=== PATIENT | female | born 1980 | race Caucasian/White ===

== ENCOUNTER 2017-04-16 09:39 | Emergency (ER) | payer BC ==
[2017-04-16 09:50] VITALS: BP 116/78; PULSE 75; RESP 18; TEMP 98.1
--- NOTE | 2017-04-16 10:16 | ED ---
Eye Problem HPI - General Chief complaint: Eye Problems Stated complaint: RT EYE SWELLING Time Seen by Provider: 04/16/17 10:02 Source: patient, RN notes reviewed, old records reviewed Mode of arrival: ambulatory Limitations: no limitations - History of Present Illness Initial comments: 37-year-old female present the emergency Department chief complaint of right eye swelling and pain over the past day and a half. Patient reports that she tried a new eye cream and thinks that she may have caused an infection to that. She reports that her eye feels okay just the surrounding inferior tissue that is painful to her. She denies any fever or chills. Denies any pain with extraocular eye movements. Patient denies any recent fever, chills, shortness of breath, chest pain, back pain, abdominal pain, nausea vomiting, numbness or tingling, dysuria or hematuria, constipation or diarrhea, headaches or visual changes, or any other current symptoms - Related Data Home Medications Medication Instructions Recorded Confirmed Phentermine HCl [Adipex-P] 37.5 mg PO QAM 10/05/14 10/05/14 Previous Rx's Medication Instructions Recorded Cephalexin [Keflex] 500 mg PO Q8HR #21 cap 04/16/17 Erythromycin Ophth Oint [Romycin 1 applic RIGHT EYE QID #1 tube 04/16/17 Ophth Oint] Allergies Allergy/AdvReac Type Severity Reaction Status Date / Time No Known Allergies Allergy Verified 04/16/17 09:50 Review of Systems ROS Statement: Those systems with pertinent positive or pertinent negative responses have been documented in the HPI. ROS Other: All systems not noted in ROS Statement are negative. Past Medical History Past Medical History: No Reported History History of Any Multi-Drug Resistant Organisms: None Reported Past Surgical History: Tonsillectomy Additional Past Surgical History / Comment(s): left great toe Past Psychological History: No Psychological Hx Reported Smoking Status: Current every day smoker Past Alcohol Use History: None Reported Past Drug Use History: None Reported General Exam - General Exam Comments Initial Comments: Physical is a 37-year-old female. No acute distress. Limitations: no limitations General appearance: alert, in no apparent distress Head exam: Present: atraumatic, normocephalic, normal inspection Eye exam: Present: normal appearance, PERRL, EOMI, periorbital swelling, periorbital tenderness (Patient has some right-sided lower. Orbital swelling and mild tenderness. Evidence of a hordeolum over the medial aspect of the eye. ). Absent: scleral icterus, conjunctival injection ENT exam: Present: normal exam, mucous membranes moist Neck exam: Present: normal inspection. Absent: tenderness, meningismus, lymphadenopathy Respiratory exam: Present: normal lung sounds bilaterally. Absent: respiratory distress, wheezes, rales, rhonchi, stridor Cardiovascular Exam: Present: regular rate, normal rhythm, normal heart sounds. Absent: systolic murmur, diastolic murmur, rubs, gallop, clicks GI/Abdominal exam: Present: soft, normal bowel sounds. Absent: distended, tenderness, guarding, rebound, rigid Extremities exam: Present: normal inspection, full ROM, normal capillary refill. Absent: tenderness, pedal edema, joint swelling, calf tenderness Back exam: Present: normal inspection Neurological exam: Present: alert, oriented X3, CN II-XII intact Psychiatric exam: Present: normal affect, normal mood Skin exam: Present: warm, dry, intact, normal color. Absent: rash Course Vital Signs 04/16/17 09:48 Temperature 98.1 F Pulse Rate 75 Respiratory 18 Rate Blood Pressure 116/78 O2 Sat by Pulse 100 Oximetry Medical Decision Making - Medical Decision Making 37-year-old female present the emergency Department chief complaint of right eye swelling and pain over the past day and a half. Patient reports that she tried a new eye cream and thinks that she may have caused an infection to that. She reports that her eye feels okay just the surrounding inferior tissue that is painful to her. is evidence of a right lower hordeolum. There is surrounding swelling and erythema. Patient be started on erythromycin eye ointment, and Keflex. Discussed close follow-up with primary care physician or slag skimmer. Discussed discontinuing her makeup including mascara and eyeliner until this is totally cleared. Patient agrees to treatment plan will comply. Also discussed warm compresses over the area. Disposition Clinical Impression: Hordeolum externum (stye) Disposition: HOME SELF-CARE Condition: Good Instructions: Stye (ED) Additional Instructions: Patient is to do warm compresses over the area, take the medications as prescribed. Follow-up with your primary care physician if symptoms continue to persist or worsen. Return to emergency department if any alarming signs or symptoms occur. Prescriptions: Cephalexin [Keflex] 500 mg PO Q8HR #21 cap Erythromycin Ophth Oint [Romycin Ophth Oint] 1 applic RIGHT EYE QID #1 tube Referrals: Derick Alejandra DO [Primary Care Provider] - 1-2 days Time of Disposition: 10:15
== END 2017-04-16 10:26 | disposition home or self-care (01) ==
LOC: EC 09:39
DX: H00.012 Hordeolum externum right lower eyelid (principal); F17.200 Nicotine dependence, unspecified, uncomplicated; Z79.899 Other long term (current) drug therapy
CPT/HCPCS: 99283

== ENCOUNTER 2017-08-26 11:06 | Day surgery (SDC) | payer BC ==
[2017-08-24 14:50] VITALS: BMI 32.3
--- NOTE | 2017-08-25 16:43 | HP ---
HISTORY AND PHYSICAL REASON FOR ADMISSION: Surgery scheduled for 08/26/2017. HISTORY OF PRESENT ILLNESS: Amparo Wayne is 37-year-old patient seen with a displaced right ankle bimalleolar fracture. Recommend open reduction, internal fixation. Reviewed the procedure, risks, complications, benefits, recovery, the patient was agreeable and consent was obtained. PAST MEDICAL HISTORY: Noncontributory. PAST SURGICAL HISTORY: Left foot surgery. MEDICATIONS: Analgesics as needed. ALLERGIES: None reported. SOCIAL HISTORY: Patient smokes half pack cigarettes daily. PHYSICAL EXAMINATION: Evaluation of the right ankle: Tenderness along the lateral medial malleolus. Mild swelling laterally. Homans Kory negative. She is able to move her toes without pain. Distal neurovascular exam is intact. RADIOGRAPHS: Radiographs of the right ankle revealed displaced lateral malleolar fracture and a medial malleolar avulsion fracture. IMPRESSION: Right ankle bimalleolar fracture. PLAN: Open reduction, internal fixation, right ankle. Surgery is scheduled for 08/26/2017. MMODL / IJN: [id number] /
[~2017-08-26 11:06] MED LIST: DEXAMETHASONE SOD PHOSPHATE 10 MG/ML 1 ML VIAL IV ONE; ONDANSETRON 4 MG/2 ML VIAL IVP ONE; ceFAZolin IN SWFI 2 GM/20 ML SYRINGE IVP ONE
[2017-08-26] MEDS ORDERED: LIDOCAINE 1% 20 ML VIAL (10MG/ML) FOR IV START INTRADERMA ONE (11:36)
[2017-08-26] MEDS: LACTATED RINGERS 1,000 ML IV SCH (11:36)
[2017-08-26] MEDS ORDERED: HYDROcodone/APAP 5-325MG 1 EACH TAB PO PRN (12:02)
[2017-08-26] MEDS ORDERED: ONDANSETRON 4 MG/2 ML VIAL IVP PRN (12:02)
[2017-08-26] MEDS ORDERED: HYDROmorphone 1 MG/ML 1 ML SYRINGE IVP PRN ×2 (12:02)
[2017-08-26] MEDS ORDERED: LIDOCAINE 1% INJ 10MG/ML (20 ML MDV) ONE (12:03)
[2017-08-26] MEDS ORDERED: fentaNYL (PF) 50 MCG/ML 2 ML AMP ONE (12:03)
[2017-08-26] MEDS ORDERED: PROPOFOL 10 MG/ML 20 ML VIAL IV ONE (12:03)
[2017-08-26] MEDS ORDERED: HYDROmorphone (PF) 1 MG/ML ONE (12:03)
[2017-08-26] MEDS ORDERED: MIDAZOLAM 2 MG/2 ML VIAL ONE (12:03)
[2017-08-26] MEDS ORDERED: ACETAMINOPHEN TAB 325 MG TAB PO PRN (12:06)
[2017-08-26] MEDS ORDERED: ceFAZolin 1,000 MG in SODIUM CHLORIDE 0.9% 1,000 ML IRRIGATION ONE (12:29)
--- NOTE | 2017-08-26 13:06 | XR ---
Fluoroscopy INDICATION: Pain, open reduction internal fixation FINDINGS: Fluoroscopy time: 11 seconds. Images obtained: 3. IMPRESSIONS: 1. Documentation of fluoroscopy.
--- NOTE | 2017-08-26 13:06 | FL ---
Fluoroscopy INDICATION: Pain FINDINGS: Fluoroscopy time: 11 seconds. Images obtained: 3. IMPRESSIONS: 1. Documentation of fluoroscopy.
[2017-08-26] MEDS: HYDROmorphone 0.5 MG/0.5 ML SYRINGE IVP PRN ×2 (13:15→13:20)
[2017-08-26] MEDS: MIDAZOLAM 2 MG/2 ML VIAL IV PRN ×2 (13:15→13:30)
--- NOTE | 2017-08-26 13:18 | P.OP ---
Date of Procedure: 08/26/17 Preoperative Diagnosis: Displaced right ankle lateral malleolar fracture Postoperative Diagnosis: Same Procedure(s) Performed: Open reduction and internal fixation right ankle lateral malleolar fracture Implants: [place] 5 hole semitubular plate with 5 appropriate length screws Anesthesia: SARA local Surgeon: Blu Estrada Carbonizer Tester #1: Artie Madrigal Estimated Blood Loss (ml): 15 Pathology: none sent Condition: stable Disposition: PACU Indications for Procedure: 37-year-old patient seen with a bimalleolar right ankle fracture. The medial side had a small avulsion fracture and lateral malleolar fracture was displaced. I recommended open reduction internal fixation of the right ankle lateral malleolus. After reviewing the procedure, risks, complications and recovery the patient was agreeable and consent was obtained. Operative Findings: See description of procedure Description of Procedure: The patient was taken to the operative suite. The patient underwent a general anesthetic by the department of anesthesia. The patient had received preoperative IV antibiotics. A well-padded tourniquet was placed proximal right lower extremity. The right lower extremity was prepped and draped in the normal sterile orthopedic fashion. The extremity was elevated and tourniquet insufflated to 350. I now made an incision along the lateral malleolus approximately 4 inches in length sharply through skin. I dissected down to the lateral malleolus. I identified the lateral malleolar fracture which was displaced. Periosteal elevation was utilized to define the fracture site. I reduced the fracture with a [id number] bone reduction clamp. I chose a 5 hole semitubular plate. This was appropriately contoured. Secured to the bone. Appropriate drill holes were made and appropriate length screws were inserted 5. All 5 screws had good bite and purchase. The clamp was removed. The C-arm was brought in reviewing the entire construct under AP and lateral intraoperative imaging. The fracture was reduced and the hardware was in satisfactory position. Spot films were obtained to document that. The wound was irrigated with normal saline. The subcu soft tissues were approximated with 2-0 Vicryl. The skin was approximated with skin stefani. The subcu soft tissues were infiltrated with half percent plain Marcaine totaling 20 mL. We applied sterile dressings followed by loose web roll. The tourniquet was released with immediate capillary refill of all digits noted. The patient was placed into a modified bulky Perry splint with ankle in neutral position. The patient was awakened, transferred to a bed and recovery stable condition. Ben PERKINS assisted with the procedure.
[2017-08-26] MEDS ORDERED: KETOROLAC 30 MG/ML 1 ML VIAL IVP ONE (13:20)
[2017-08-26] MEDS: MEPERIDINE 50 MG/ML SYRINGE IVP ONE ×2 (13:30→13:39)
[2017-08-26] MEDS ORDERED: diphenhydrAMINE 50 MG/ML 1 ML VIAL IVP ONE (13:39)
[2017-08-26] MEDS: traMADol 50 MG TAB PO SCH ×2 (17:16→21:39)
[2017-08-26] MEDS: ceFAZolin IN SWFI 2 GM/20 ML SYRINGE IVP SCH (21:32)
[2017-08-27] MEDS: HYDROcodone/APAP 5-325MG 1 EACH TAB PO PRN ×2 (03:02→09:53)
[2017-08-27] MEDS: ceFAZolin IN SWFI 2 GM/20 ML SYRINGE IVP SCH (04:21)
[2017-08-27] MEDS: LACTATED RINGERS 1,000 ML IV SCH (08:16)
[2017-08-27] MEDS: traMADol 50 MG TAB PO SCH (08:18)
[2017-08-27 08:19] VITALS: BP 109/65; PULSE 73; RESP 22; TEMP 98.8
[2017-08-27] MEDS ORDERED: ENOXAPARIN 40 MG/0.4 ML SYRINGE SQ SCH (09:00)
--- NOTE | 2017-08-27 10:03 | P.PN ---
Subjective Progress Note Date: 08/27/17 Principal diagnosis: Status post ORIF right lateral malleolus fracture Patient seen today resting in her hospital bed, she appears comfortable. Her pain is well-controlled at this time. She denies any chest pain, shortness of breath, fever or chills, abdominal pain. Objective - Vital Signs Vital signs: Vital Signs Temp 98.8 F 08/27/17 08:17 Pulse 73 08/27/17 08:17 Resp 22 08/27/17 08:17 BP 109/65 08/27/17 08:17 Pulse Ox 96 08/27/17 08:17 Intake & Output 08/26/17 08/27/17 08/27/17 18:59 06:59 18:59 Intake Total 501 Output Total 15 Balance 486 Weight 99.337 kg Intake: IV 501 Output: Estimated Blood Loss 15 Other: Voiding Method Toilet # Voids 1 1 - Exam Right lower extremity: Postop splint is in good position. Minimal swelling of the toes noted. She is able to wiggle all the toes. Her sensory exam to light touch both proximal distal to the splint intact. Skin is warm to touch, cap refills less than 2 seconds. Assessment and Plan Plan: Assessment: 1. Postop day #1 status post open reduction internal fixation right lateral malleolus fracture Plan: Pain control, we'll discharge home on oral medication GI and DVT prophylaxis, continue aspirin 325 mg once daily at home Nonweightbearing, utilize crutches or walker Ice and elevate often Resume home medications after discharge Patient is stable for discharge to home, follow[facility]up at [facility] for evaluation in 2 weeks Time with Patient: Less than 30
--- NOTE | 2017-08-27 10:10 | P.DS ---
Providers Date of admission: 08/26/2017 Expected date of discharge: 08/27/17 Attending physician: Blu Estrada Primary care physician: Derick Beverly Hospital Course: Date of admission: 08/26/2017 Date of discharge: 08/27/2017 Admission diagnosis: Status post ORIF right ankle lateral malleolus fracture Discharge diagnosis: Same Attending physician: Dr. Estrada Surgical procedures: ORIF right ankle lateral malleolus fracture Brief history: Patient is a 37-year-old female who is seen and evaluated in the outpatient setting by Dr. Estrada with regards to a right ankle fracture. It was determined she would need for surgical fixation of the lateral malleolus, she was scheduled for this surgery for 08/18/2017. Hospital course: Details of patient's surgery can be found in operative report. Patient tolerated the procedure well and was subsequently transported to orthopedic floor. Patient's orthopeidc and medical care was provided daily. Patient had daily laboratory tests performed for evaluation of overall blood counts. Patient was treated with Lovenox for their postoperative DVT prophylaxis during their inpatient stay. Patient was noted to have a relatively uneventful postoperative course. Patient reported satisfactory pain control with oral pain medications by postoperative day 0. Patient moved steadily through the program and had no difficulty meeting the goals by postoperative day 1. Given patient's otherwise satisfactory course and having met physical therapy goals, plan is to discharge patient home on postoperative day 1. Discharge condition/disposition: Patient will be discharged home in stable condition. Discharge medications: Instructions are given on resumption of patient's normal daily medications per primary care recommendation, in addition patient will be prescribed [place] 5 mg/325 mg, Motrin 800 mg, aspirin 325 mg. Discharge instructions: 1. Pain medication as needed 2. Nonweightbearing, utilize crutches or walker 3. Aspirin 325 mg once daily for DVT prophylaxis 4. Ice and elevate often 5. Do not remove splint, keep covered when showering 6. Follow up in office at 2 weeks postop with Ben Madrigal PA-C 7. Follow up with your primary care doctor 7-10 days after discharge. 8. Contact [facility] with any questions, . Procedures: Open reduction internal fixation right lateral malleolus fracture Patient Condition at Discharge: Good Plan - Discharge Summary Discharge Rx Participant: Yes New Discharge Prescriptions: New Aspirin 325 mg PO DAILY #30 tab Hydrocodone/Acetaminophen [[place] 5-325] 1 each PO Q6HR PRN #40 tab PRN Reason: Pain Ibuprofen 800 mg PO Q8HR PRN #30 tablet PRN Reason: Pain Discharge Medication List Aspirin 325 mg PO DAILY #30 tab 08/27/17 [Rx] Hydrocodone/Acetaminophen [[place] 5-325] 1 each PO Q6HR PRN #40 tab 08/27/17 [Rx] Ibuprofen 800 mg PO Q8HR PRN #30 tablet 08/27/17 [Rx] Follow up Appointment(s)/Referral(s): Artie Madrigal PAC [PHYSICIAN COURTROOM CLERK] - 2 Weeks Activity/Diet/Wound Care/Special Instructions: Discharge instructions: Pain medication as needed Ice and elevate often Nonweightbearing, utilize crutches or walker Aspirin 325 mg once daily for DVT prophylaxis Follow-up at [facility] in 2 weeks Discharge Disposition: HOME SELF-CARE
== END 2017-08-27 11:20 | disposition home or self-care (01) ==
LOC: OR 11:06 → 3SUR 13:06 → OR 08-27 11:20
PROVIDERS: ATTEND Orthopaedic Surgery
DX: S82.61XA Displaced fracture of lateral malleolus of right fibula, initial encounter for closed fracture (principal); X58.XXXA Exposure to other specified factors, initial encounter; F17.210 Nicotine dependence, cigarettes, uncomplicated
CPT/HCPCS: 81025; 73610; 27792; C1713; J2250; J1200; J1100; J2175; J0690 ×3; J2405; J2001; J1650; J3010; J1885; J1170 ×2; J2704

== ENCOUNTER 2017-09-05 11:08 | Emergency (ER) | payer BC ==
[2017-09-05 11:13] VITALS: TEMP 97
--- NOTE | 2017-09-05 11:40 | ED ---
General Adult HPI - General Chief complaint: Extremity Problem,Nontraumatic Stated complaint: RT LEG PROBLEM, POST OP Time Seen by Provider: 09/05/17 11:20 Source: patient, RN notes reviewed, old records reviewed Mode of arrival: wheelchair Limitations: no limitations - History of Present Illness Initial comments: this patient is a 37-year-old female presents emergency Department stay chief complaint of sharp pains radiating down her right leg. She reports that she had a right ankle fracture repair by Dr. Estrada on 08/17/2018. Patient states she's been placed in a full cast since then. She reports that she occasionally feels sharp stabbing pain on the lateral aspect of the foot or her stefani were placed for the past week. Patient states that she reports it her foot has been swollen. She relates that she has been walking on her foot and not keeping it up as she is supposed to. Patient is concerned for bleeding or irritation at incision site. She states that she's had no fever or chills. Denies any redness up through the leg. She denies any numbness or tingling to the toes. - Related Data Home Medications Medication Instructions Recorded Confirmed Aspirin EC [Ecotrin Low Dose] 81 mg PO DAILY 09/05/17 09/05/17 Hydrocodone/Acetaminophen [[place] 1 tab PO Q6HR PRN 09/05/17 09/05/17 5-325] Previous Rx's Medication Instructions Recorded Ibuprofen 800 mg PO Q8HR PRN #30 tablet 08/27/17 Allergies Allergy/AdvReac Type Severity Reaction Status Date / Time No Known Allergies Allergy Verified 09/05/17 11:21 Review of Systems ROS Statement: Those systems with pertinent positive or pertinent negative responses have been documented in the HPI. ROS Other: All systems not noted in ROS Statement are negative. Past Medical History Past Medical History: No Reported History Additional Past Medical History / Comment(s): FX RT ANKLE History of Any Multi-Drug Resistant Organisms: None Reported Past Surgical History: Orthopedic Surgery, Tonsillectomy Additional Past Surgical History / Comment(s): left great toe surgery, right leg surgery Past Anesthesia/Blood Transfusion Reactions: No Reported Reaction Past Psychological History: No Psychological Hx Reported Smoking Status: Current every day smoker Past Alcohol Use History: Occasional Past Drug Use History: None Reported - Past Family History Mother Family Medical History: No Reported History General Exam - General Exam Comments Initial Comments: This patient is a well appearing 37 year old female, no distress. Limitations: no limitations General appearance: alert, in no apparent distress Head exam: Present: atraumatic, normocephalic, normal inspection Eye exam: Present: normal appearance, PERRL, EOMI. Absent: scleral icterus, conjunctival injection, periorbital swelling Respiratory exam: Present: normal lung sounds bilaterally. Absent: respiratory distress, wheezes, rales, rhonchi, stridor Cardiovascular Exam: Present: regular rate, normal rhythm, normal heart sounds. Absent: systolic murmur, diastolic murmur, rubs, gallop, clicks GI/Abdominal exam: Present: soft, normal bowel sounds. Absent: distended, tenderness, guarding, rebound, rigid Extremities exam: Present: full ROM, normal capillary refill. Absent: normal inspection, tenderness, pedal edema, joint swelling, calf tenderness Right Knee exam: Present: normal inspection, full ROM Lower Leg exam: Present: normal inspection, full ROM Ankle exam: Present: tenderness (over incision site). Absent: normal inspection (Patient has incision over lateral ankle. I removed the cast and inspected incision site. No drainage, erythema, or bleeding. Well appearing incision site. Normal sensation and pulse. ), full ROM (limited ROM due to recent surgery. ) Foot/Toe exam: Present: normal inspection, full ROM Neurovascular tendon exam: Present: no vascular compromise Back exam: Present: normal inspection Neurological exam: Present: alert, oriented X3, CN II-XII intact Psychiatric exam: Present: normal affect, normal mood Skin exam: Present: warm, dry, intact, normal color. Absent: rash Course Vital Signs 09/05/17 09/05/17 11:10 13:02 Temperature 97.0 F L Pulse Rate 99 79 Respiratory 18 16 Rate Blood Pressure 116/63 131/77 O2 Sat by Pulse 100 98 Oximetry Medical Decision Making - Medical Decision Making This is a 37 year old female with CC of irritation under cast for one week after patient had bimalleoular fracture repair by Dr. Estrada. She reports irriation at her incision site under cast. I removed cast with trauma ivette and plaster saw. Patient incision was inspected, no erythema, drainage, or swelling. No ulcerations or skin sores. She has no posterior calf tenderness. No concern for DVT at this time. PAtient case discussed with Dr. Sepulveda, he also examined the patient. Discussed importance of elevating leg, and taking antiinflammatory. Discussed that patient will follow up with Sean on scheduled appt on the . Patient cast was then reclosed with webroll and MAXIMO wrap. Discussed return parameters. Disposition Clinical Impression: Post-operative pain, Bimalleolar fracture of right ankle Disposition: HOME SELF-CARE Condition: Good Instructions: Ankle Fracture (ED) Additional Instructions: Patient advised to follow-up with primary care provider and wildfire prevention specialist on your scheduled appointment. Patient is to rest, ice, and elevate extremity. Remain in the splint as you have been. Return to emergency department if any alarming signs or symptoms occur. Referrals: Derick Alejandra DO [Primary Care Provider] - 1-2 days Time of Disposition: 12:40
[2017-09-05 13:03] VITALS: BP 131/77; PULSE 79; RESP 16
== END 2017-09-05 13:03 | disposition home or self-care (01) ==
LOC: EC 11:08
DX: S82.841A Displaced bimalleolar fracture of right lower leg, initial encounter for closed fracture (principal); G89.18 Other acute postprocedural pain; F17.200 Nicotine dependence, unspecified, uncomplicated; Z79.82 Long term (current) use of aspirin; X58.XXXA Exposure to other specified factors, initial encounter
CPT/HCPCS: 99283

== ENCOUNTER 2021-02-14 21:59 | Emergency (ER) | payer BC ==
[2021-02-14 22:17] VITALS: TEMP 99
--- NOTE | 2021-02-14 22:35 | ED ---
Abdominal Pain HPI - General Chief Complaint: Abdominal Pain Stated Complaint: Left abd pain Time Seen by Provider: 02/14/21 22:23 Source: patient Mode of arrival: ambulatory Limitations: no limitations - History of Present Illness Initial Comments: This patient is a 40-year-old woman who presents to be evaluated for left lower quadrant abdominal pain. She states that it is generally when she moves in bed or when she coughs. She notices sharp pain in the left lower quadrant/left groin. 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 She has not noticed any bulge or hernia. In review of systems she also has had some occasional nausea, no vomiting, no change in bowel movements. MD Complaint: abdominal pain -: week(s) Location: LLQ Radiation: none Migration to: no migration Severity: mild Quality: dull Consistency: intermittent Improves With: nothing Worsens With: movement, other (Coughing) Associated Symptoms: denies other symptoms - Related Data Home Medications Medication Instructions Recorded Confirmed Aspirin EC [Ecotrin Low Dose] 81 mg PO DAILY 09/05/17 09/05/17 Hydrocodone/Acetaminophen [[place] 1 tab PO Q6HR PRN 09/05/17 09/05/17 5-325] Previous Rx's Medication Instructions Recorded Ibuprofen 800 mg PO Q8HR PRN #30 tablet 08/27/17 Allergies Allergy/AdvReac Type Severity Reaction Status Date / Time No Known Allergies Allergy Verified 02/14/21 22:17 Review of Systems ROS Statement: Those systems with pertinent positive or pertinent negative responses have been documented in the HPI. ROS Other: All systems not noted in ROS Statement are negative. Constitutional: Denies: fever, chills Respiratory: Denies: cough, dyspnea Cardiovascular: Denies: chest pain, palpitations, edema Gastrointestinal: Reports: as per HPI, abdominal pain, nausea. Denies: vomiting, diarrhea, constipation, melena, hematochezia Genitourinary: Denies: dysuria, frequency, hematuria, abnormal menses Musculoskeletal: Denies: back pain Skin: Denies: rash Neurological: Denies: headache, weakness Past Medical History Past Medical History: No Reported History Additional Past Medical History / Comment(s): FX RT ANKLE History of Any Multi-Drug Resistant Organisms: None Reported Past Surgical History: Orthopedic Surgery, Tonsillectomy Additional Past Surgical History / Comment(s): left great toe surgery, right leg surgery Past Anesthesia/Blood Transfusion Reactions: No Reported Reaction Past Psychological History: No Psychological Hx Reported Smoking Status: Current every day smoker Past Alcohol Use History: Occasional Past Drug Use History: None Reported - Past Family History Mother Family Medical History: No Reported History General Exam Limitations: no limitations General appearance: alert, in no apparent distress Head exam: Present: atraumatic, normocephalic Eye exam: Present: normal appearance Respiratory exam: Present: normal lung sounds bilaterally. Absent: respiratory distress, wheezes, rales, rhonchi, stridor Cardiovascular Exam: Present: regular rate, normal rhythm, normal heart sounds. Absent: systolic murmur, diastolic murmur, rubs, gallop GI/Abdominal exam: Present: soft, normal bowel sounds. Absent: distended, tenderness, guarding, rebound, rigid, mass, pulsatile mass, hernia Extremities exam: Present: normal inspection, normal capillary refill. Absent: pedal edema, calf tenderness Back exam: Present: normal inspection. Absent: CVA tenderness (R), CVA tenderness (L) Neurological exam: Present: alert Skin exam: Present: warm, dry, intact, normal color. Absent: rash Course Vital Signs 02/14/21 02/14/21 22:14 22:16 Temperature 99.0 F Pulse Rate 88 86 Respiratory 18 22 Rate Blood Pressure 124/63 132/85 O2 Sat by Pulse 100 99 Oximetry Medical Decision Making - Lab Data Result diagrams: 02/14/21 22:41 02/14/21 22:41 Lab Results 02/14/21 02/14/21 Range/Units 22:41 22:41 WBC 5.5 (3.8-10.6) k/uL RBC 4.04 (3.80-5.40) m/uL Hgb 13.0 (11.4-16.0) gm/dL Hct 36.6 (34.0-46.0) % MCV 90.5 (80.0-100.0) fL MCH 32.1 (25.0-35.0) pg MCHC 35.5 (31.0-37.0) g/dL RDW 12.6 (11.5-15.5) % Plt Count 242 (150-450) k/uL MPV 7.5 Neutrophils % 59 % Lymphocytes % 31 % Monocytes % 5 % Eosinophils % 3 % Basophils % 1 % Neutrophils # 3.2 (1.3-7.7) k/uL Lymphocytes # 1.7 (1.0-4.8) k/uL Monocytes # 0.3 (0-1.0) k/uL Eosinophils # 0.2 (0-0.7) k/uL Basophils # 0.1 (0-0.2) k/uL Sodium 140 (137-145) mmol/L Potassium 4.1 (3.5-5.1) mmol/L Chloride 109 H (98-107) mmol/L Carbon Dioxide 24 (22-30) mmol/L Anion Gap 7 mmol/L BUN 19 H (7-17) mg/dL Creatinine 0.77 (0.52-1.04) mg/dL Est GFR (CKD-EPI)AfAm >90 (>60 ml/min/1.73 sqM) Est GFR (CKD-EPI)NonAf >90 (>60 ml/min/1.73 sqM) Glucose 115 H (74-99) mg/dL Calcium 9.2 (8.4-10.2) mg/dL Total Bilirubin 0.2 (0.2-1.3) mg/dL AST 28 (14-36) U/L ALT 22 (4-34) U/L Alkaline Phosphatase 41 (38-126) U/L C-Reactive Protein 0.6 (<1.0) mg/dL Total Protein 6.1 L (6.3-8.2) g/dL Albumin 3.9 (3.5-5.0) g/dL Amylase 48 (30-110) U/L Lipase 70 (23-300) U/L Disposition Clinical Impression: Abdominal wall strain Disposition: HOME SELF-CARE Condition: Good Instructions (If sedation given, give patient instructions): Abdominal Pain (ED) Is patient prescribed a controlled substance at d/c from ED?: No Referrals: None,Stated [Primary Care Provider] - 1-2 days
[2021-02-14 23:03] LABS: Basophils # (A) 0.1 k/uL (0-0.2); Basophils % (A) 1 %; Eosinophils # (A) 0.2 k/uL (0-0.7); Eosinophils % (A) 3 %; HCT 36.6 % (34.0-46.0); Lymphocytes # (A) 1.7 k/uL (1.0-4.8); Lymphocytes % (A) 31 %; MCH 32.1 pg (25.0-35.0); MCHC 35.5 g/dL (31.0-37.0); MCV 90.5 fL (80.0-100.0); Mean Platelet Volume 7.5; Monocytes # (A) 0.3 k/uL (0-1.0); Monocytes % (A) 5 %; Neutrophils # (A) 3.2 k/uL (1.3-7.7); Neutrophils % (A) 59 %; Platelet Count 242 k/uL (150-450); RBC 4.04 m/uL (3.80-5.40); RDW 12.6 % (11.5-15.5); WBC 5.5 k/uL (3.8-10.6)
[2021-02-14 23:13] LABS: ALT 22 U/L (4-34); AST 28 U/L (14-36); African American GFR (CKD) >90 (>60 ml/min/1.73 sqM); Albumin 3.9 g/dL (3.5-5.0); Alkaline Phosphatase 41 U/L (38-126); Amylase 48 U/L (30-110); Anion Gap 7 mmol/L; Blood Urea Nitrogen 19 mg/dL (7-17); Calcium 9.2 mg/dL (8.4-10.2); Carbon Dioxide 24 mmol/L (22-30); Chloride 109 mmol/L (98-107); Glucose 115 mg/dL (74-99); Lipase 70 U/L (23-300); Non-African American GFR(CKD) >90 (>60 ml/min/1.73 sqM); Potassium 4.1 mmol/L (3.5-5.1); Sodium 140 mmol/L (137-145); Total Bilirubin 0.2 mg/dL (0.2-1.3); Total Protein 6.1 g/dL (6.3-8.2)
--- NOTE | 2021-02-14 23:48 | XR ---
EXAMINATION TYPE: XR KUB DATE OF EXAM: 02/14/2021 COMPARISON: 10/05/2014 HISTORY: Pain TECHNIQUE: 2 views upright FINDINGS: There is no sign of intestinal obstruction or pneumoperitoneum. Fecal pattern is normal. Th ere is no sign of a mass. Lung bases are clear. There are no pathologic calcifications over the kidne ys. IMPRESSION: Nonacute abdomen. No change.
[2021-02-14] MEDS ORDERED: IBUPROFEN 400 MG TAB PO STA (23:55)
[2021-02-15 00:30] LABS: C Reactive Protein 0.6 mg/dL (<1.0)
[2021-02-15 01:34] VITALS: BP 118/81; PULSE 71; RESP 18
== END 2021-02-15 01:45 | disposition home or self-care (01) ==
LOC: EC 21:59
DX: S39.011A Strain of muscle, fascia and tendon of abdomen, initial encounter (principal); F17.200 Nicotine dependence, unspecified, uncomplicated; Z79.82 Long term (current) use of aspirin; Z79.1 Long term (current) use of non-steroidal anti-inflammatories (NSAID); X58.XXXA Exposure to other specified factors, initial encounter
CPT/HCPCS: 36415; 74018; 80053; 82150; 83690; 85025; 86140; 99284

== ENCOUNTER 2021-03-27 21:24 | Emergency (ER) | payer BC ==
[2021-03-27 21:36] VITALS: BP 145/94; PULSE 94; RESP 17; TEMP 98.2
[2021-03-27] MEDS ORDERED: ceFAZolin 1,000 MG VIAL (IM USE) IM STA (21:46)
[2021-03-27] MEDS ORDERED: MORPHINE SULFATE 4 MG/ML SYRINGE IM STA (21:46)
--- NOTE | 2021-03-27 22:03 | XR ---
Result: History: Pain. Comparison: None available. Technique: 3 views of the right foot. Findings: The bone mineralization is appropriate for age. No acute fracture or dislocation is seen. Lesser toe claw deformity and prior distal fibular ORIF see n. The joint spaces are preserved. There is soft tissue swelling at the dorsum of the foot. No radi opaque foreign body. Impression: Soft tissue swelling/hematoma without acute osseous abnormality.
[2021-03-27] MEDS ORDERED: BACITRACIN OINT 1 EACH PACKET TOPICAL ONE (22:19)
[2021-03-27] MEDS ORDERED: ACET/COD 300 MG/30 MG STARTER PACK 6 TAB BTL PO STA (22:22)
--- NOTE | 2021-03-27 22:22 | ED ---
Wound/Laceration HPI - General Chief Complaint: Wound/Laceration Stated Complaint: RT foot injury Time Seen by Provider: 03/27/21 21:39 Source: patient Mode of arrival: wheelchair Limitations: no limitations - History of Present Illness Initial Comments: 40-year-old female patient presents to the emergency department today for evaluation of injury to the right foot. Patient states she was removing the storm window from the door when the window fell on her foot. States injury occurred about 45 minutes prior to arrival. States she had pain with weight bearing but was able to walk. Denies any ankle pain. Denies numbness or tingling to the foot. Denies any other injury. Patient denies any headache, neck pain, back pain, chest pain, shortness of breath, dizziness, weakness, abdominal pain, nausea, vomiting, or difficulties with bowel movements or urination. - Related Data Home Medications Medication Instructions Recorded Confirmed Aspirin EC [Ecotrin Low Dose] 81 mg PO DAILY 09/05/17 09/05/17 Hydrocodone/Acetaminophen [[place] 1 tab PO Q6HR PRN 09/05/17 09/05/17 5-325] Previous Rx's Medication Instructions Recorded Ibuprofen 800 mg PO Q8HR PRN #30 tablet 08/27/17 Ibuprofen [Motrin] 600 mg PO Q8HR PRN #30 tab 03/27/21 Allergies Allergy/AdvReac Type Severity Reaction Status Date / Time No Known Allergies Allergy Verified 03/27/21 21:35 Review of Systems ROS Statement: Those systems with pertinent positive or pertinent negative responses have been documented in the HPI. ROS Other: All systems not noted in ROS Statement are negative. Past Medical History Past Medical History: No Reported History Additional Past Medical History / Comment(s): FX RT ANKLE History of Any Multi-Drug Resistant Organisms: None Reported Past Surgical History: Orthopedic Surgery, Tonsillectomy Additional Past Surgical History / Comment(s): left great toe surgery, right leg surgery Past Anesthesia/Blood Transfusion Reactions: No Reported Reaction Past Psychological History: No Psychological Hx Reported Smoking Status: Current every day smoker Past Alcohol Use History: Occasional Past Drug Use History: None Reported - Past Family History Mother Family Medical History: No Reported History General Exam Limitations: no limitations General appearance: alert, in no apparent distress, other (Physical well- developed, well-nourished adult female patient in no acute distress. Vital signs upon presentation temperature 98.2F, pulse 94, respirations 17, blood pressure 145/94, pulse ox 98% on room air.) Respiratory exam: Present: normal lung sounds bilaterally. Absent: respiratory distress, wheezes, rales, rhonchi, stridor Cardiovascular Exam: Present: regular rate, normal rhythm, normal heart sounds. Absent: systolic murmur, diastolic murmur, rubs, gallop, clicks Extremities exam: Present: full ROM, normal capillary refill, other (There is soft tissue swelling and ecchymosis noted to the dorsal aspect of the right foot over the metatarsals. There is small superficial laceration measuring approximately 1 cm. Skin is otherwise pink, warm, dry. Cap refill less than 3 seconds. Pedal pulses 2+ .). Absent: tenderness, pedal edema, joint swelling, calf tenderness Neurological exam: Present: alert, oriented X3, CN II-XII intact Psychiatric exam: Present: normal affect, normal mood Skin exam: Present: warm, dry, intact, normal color. Absent: rash Course Vital Signs 03/27/21 21:32 Temperature 98.2 F Pulse Rate 94 Respiratory 17 Rate Blood Pressure 145/94 O2 Sat by Pulse 98 Oximetry Medical Decision Making - Medical Decision Making 40-year-old female patient presented to the emergency department today for evaluation of right foot injury. Physical examination revealed soft tissue swelling and ecchymosis to the dorsal aspect of the right foot over the metatarsals. There was superficial laceration that did not require repair. Wound was cleansed and bacitracin applied. X-rays were obtained and showed no evidence for acute fracture. Patient is placed in an [place] wrap. Educated regarding rest, ice, elevation. She is instructed to follow-up the primary care physician for recheck in 1-2 days. Instructed to have repeat xrays performed in 7-10 days if pain persists. Return parameters were discussed in detail. She verbalizes understanding and agrees with this plan. My attending is Dr. Pearson. - Radiology Data Radiology results: report reviewed, image reviewed 3 views of the right foot are obtained. Report was reviewed in its entirety. Impression by Dr. Fu shows soft tissue swelling hematoma without acute osseous abnormality. Disposition Clinical Impression: Contusion of right foot, Abrasion of right foot Disposition: HOME SELF-CARE Condition: Good Instructions (If sedation given, give patient instructions): Contusion in Adults (ED), Abrasion (ED) Additional Instructions: Rest, ice, elevate the foot. Take pain medication as directed. Follow-up with the primary care physician for recheck in 1-2 days. Have repeat xrays performed in 7-10 days if pain symptoms persist. Return for any new, worsening, or concerning symptoms. Prescriptions: Ibuprofen [Motrin] 600 mg PO Q8HR PRN #30 tab PRN Reason: Pain Is patient prescribed a controlled substance at d/c from ED?: No Referrals: None,Stated [Primary Care Provider] - 1-2 days Time of Disposition: 22:21
== END 2021-03-27 22:49 | disposition home or self-care (01) ==
LOC: EC 21:24
DX: S91.311A Laceration without foreign body, right foot, initial encounter (principal); F17.200 Nicotine dependence, unspecified, uncomplicated; Z79.82 Long term (current) use of aspirin; Z79.891 Long term (current) use of opiate analgesic; W20.8XXA Other cause of strike by thrown, projected or falling object, initial encounter
CPT/HCPCS: 73630; 96372 ×2; 99283; J2270; J0690

== ENCOUNTER 2021-05-27 14:16 | Emergency (ER) | payer BC ==
[2021-05-27 14:26] VITALS: TEMP 98.8
--- NOTE | 2021-05-27 14:26 | ED ---
General Adult HPI - General Source: patient, RN notes reviewed Mode of arrival: ambulatory Limitations: no limitations <Royce Groves - Last Filed: 05/27/21 14:24> <Ashley Chakraborty - Last Filed: 05/27/21 16:40> - General Stated complaint: Cough,Sore throat Time Seen by Provider: 05/27/21 14:24 - History of Present Illness Initial comments: This a 41-year-old female presents emergency Department chief complaint of cough congestion and sore throat. Patient states symptoms started on Wednesday. Patient's symptoms are progressive. Patient states that she is concerned COVID- 19. No chest pain or shortness breath. Patient states she has had mild headache. Patient states that her cough is productive with yellow phlegm. No GI symptoms. (Royce Groves) - Related Data Home Medications Medication Instructions Recorded Confirmed Aspirin EC [Ecotrin Low Dose] 81 mg PO DAILY 09/05/17 09/05/17 Hydrocodone/Acetaminophen [[place] 1 tab PO Q6HR PRN 09/05/17 09/05/17 5-325] Previous Rx's Medication Instructions Recorded Ibuprofen 800 mg PO Q8HR PRN #30 tablet 08/27/17 Ibuprofen [Motrin] 600 mg PO Q8HR PRN #30 tab 03/27/21 Albuterol Inhaler [Ventolin Hfa 1 puff INHALATION RT-QID #8 gm 05/27/21 Inhaler] Allergies Allergy/AdvReac Type Severity Reaction Status Date / Time No Known Allergies Allergy Verified 05/27/21 14:31 Review of Systems ROS Other: All systems not noted in ROS Statement are negative. <Royce Groves - Last Filed: 05/27/21 14:24> ROS Other: All systems not noted in ROS Statement are negative. <Ashley Chakraborty - Last Filed: 05/27/21 16:40> ROS Statement: Those systems with pertinent positive or pertinent negative responses have been documented in the HPI. Past Medical History Past Medical History: No Reported History Additional Past Medical History / Comment(s): FX RT ANKLE History of Any Multi-Drug Resistant Organisms: None Reported Past Surgical History: Orthopedic Surgery, Tonsillectomy Additional Past Surgical History / Comment(s): left great toe surgery, right leg surgery Past Anesthesia/Blood Transfusion Reactions: No Reported Reaction Past Psychological History: No Psychological Hx Reported Smoking Status: Current every day smoker Past Alcohol Use History: Occasional Past Drug Use History: None Reported - Past Family History Mother Family Medical History: No Reported History <Royce Groves - Last Filed: 05/27/21 14:24> General Exam General appearance: alert, in no apparent distress Head exam: Present: atraumatic, normocephalic, normal inspection Eye exam: Present: normal appearance, PERRL, EOMI. Absent: scleral icterus, conjunctival injection, periorbital swelling ENT exam: Present: mucous membranes moist, other (nasal congestion) Neck exam: Present: normal inspection. Absent: tenderness, meningismus, lymphadenopathy Respiratory exam: Present: normal lung sounds bilaterally. Absent: respiratory distress, wheezes, rales, rhonchi, stridor Cardiovascular Exam: Present: regular rate, normal rhythm, normal heart sounds. Absent: systolic murmur, diastolic murmur, rubs, gallop, clicks GI/Abdominal exam: Present: soft, normal bowel sounds. Absent: distended, tenderness, guarding, rebound, rigid Extremities exam: Present: normal inspection, full ROM, normal capillary refill. Absent: tenderness, pedal edema, joint swelling, calf tenderness Back exam: Present: normal inspection Neurological exam: Present: alert, oriented X3, CN II-XII intact Psychiatric exam: Present: normal affect, normal mood Skin exam: Present: warm, dry, intact, normal color. Absent: rash <Ashley Chakraborty - Last Filed: 05/27/21 16:40> Course Vital Signs 05/27/21 14:23 Temperature 98.8 F Pulse Rate 89 Respiratory 19 Rate Blood Pressure 153/101 O2 Sat by Pulse 98 Oximetry Medical Decision Making <Ashley Chakraborty - Last Filed: 05/27/21 16:40> - Medical Decision Making Upon arrival patient is placed in the hallway 23. Covid swab is performed and is negative. Chest x-ray demonstrates no acute process. I did discuss the diagnosis, differential and treatment options. Patient is only concerned for Covid results. She'll be discharged home and given a prescription for an inhaler for her cough and wheeze. Recommended that she take [id number] medications such as Mucinex or Sudafed for her symptoms. Follow-up with her primary care doctor in 2-4 days. Return for any new or worsening symptoms. Patient was discharged home in stable condition (Ashley Chakraborty) - Lab Data Lab Results 05/27/21 Range/Units 14:28 Coronavirus (PCR) Not Detected (Not Detectd) Disposition <Royce Groves - Last Filed: 05/27/21 14:24> Is patient prescribed a controlled substance at d/c from ED?: No Time of Disposition: 16:25 <Ashley Chakraborty - Last Filed: 05/27/21 16:40> Clinical Impression: Cough, Bronchospasm Disposition: HOME SELF-CARE Condition: Stable Instructions (If sedation given, give patient instructions): Upper Respiratory Infection (ED) Additional Instructions: Please follow up with your doctor in 2-4 days. Return to the ED for any new or worsening symptoms. Prescriptions: Albuterol Inhaler [Ventolin Hfa Inhaler] 1 puff INHALATION RT-QID #8 gm Referrals: None,Stated [Primary Care Provider] - 1-2 days
--- NOTE | 2021-05-27 15:11 | XR ---
EXAMINATION TYPE: XR chest 2V DATE OF EXAM: 05/27/2021 COMPARISON: NONE HISTORY: Chest pain TECHNIQUE: Frontal and lateral views of the chest are obtained. FINDINGS: There is no focal air space opacity. No evidence for pneumothorax. No pleural effusion. The cardiac silhouette size is within normal limits. The osseous structures are grossly intact. IMPRESSION: 1. No acute cardiopulmonary process.
[2021-05-27 16:43] VITALS: BP 163/84; PULSE 78; RESP 20
== END 2021-05-27 16:43 | disposition home or self-care (01) ==
LOC: EC 14:16
DX: J98.01 Acute bronchospasm (principal); J02.9 Acute pharyngitis, unspecified; F17.200 Nicotine dependence, unspecified, uncomplicated; Z20.822 Contact with and (suspected) exposure to COVID-19; Z79.1 Long term (current) use of non-steroidal anti-inflammatories (NSAID); Z79.82 Long term (current) use of aspirin; Z79.899 Other long term (current) drug therapy
CPT/HCPCS: 71046; 87635; 99284

== ENCOUNTER 2023-11-22 11:21 | Emergency (ER) | payer BC ==
[2023-11-22 11:34] VITALS: TEMP 98.1
--- NOTE | 2023-11-22 11:35 | ED ---
Recheck HPI - General Source: patient, RN notes reviewed Mode of arrival: ambulatory Limitations: no limitations <Donovan Martin - Last Filed: 11/22/23 11:34> - General Source: patient, RN notes reviewed Mode of arrival: ambulatory Limitations: no limitations <Evelyne Snyder - Last Filed: 11/26/23 06:35> - General Chief Complaint: Recheck/Abnormal Lab/Rx Stated Complaint: high blood pressure Time Seen by Provider: 11/22/23 11:34 - History of Present Illness Initial Comments: Quick note: Patient is a 43-year-old female presented to the ER with chief complaint of hypertension. Patient sent here by [facility] for evaluation. Patient is not on any current antihypertensive medications. Denies any current complaints. (Donovan Martin) This is a 43-year-old female who presents to the emergency department for elevated blood pressure. Patient was having an annual evaluation at her [facility]'s office. States that her blood pressure was found to be elevated at 176/102. test there was negative. States that about a week ago she had elevated blood pressure that was said to be similar. Prior to that she has never had problems with her blood pressure, but cannot recall when it was last checked. She does admit to some shortness of breath over the last week as well as headaches that are increasing in frequency. Her headache is only mild at this time. Denies any visual changes or chest pain. (Evelyne Snyder) - Related Data Home Medications Medication Instructions Recorded Confirmed Aspirin EC [Ecotrin Low Dose] 81 mg PO DAILY 09/05/17 09/05/17 Hydrocodone/Acetaminophen [[place] 1 tab PO Q6HR PRN 09/05/17 09/05/17 5-325] Previous Rx's Medication Instructions Recorded Ibuprofen 800 mg PO Q8HR PRN #30 tablet 08/27/17 Ibuprofen [Motrin] 600 mg PO Q8HR PRN #30 tab 03/27/21 Albuterol Inhaler [Ventolin Hfa 1 puff INHALATION RT-QID #8 gm 05/27/21 Inhaler] amLODIPine [Norvasc] 2.5 mg PO DAILY #30 tablet 11/22/23 Allergies Allergy/AdvReac Type Severity Reaction Status Date / Time No Known Allergies Allergy Verified 03/25/24 11:31 Review of Systems ROS Other: All systems not noted in ROS Statement are negative. <Donovan Martin - Last Filed: 11/22/23 11:34> ROS Other: All systems not noted in ROS Statement are negative. <Evelyne Snyder - Last Filed: 11/26/23 06:35> ROS Statement: Those systems with pertinent positive or pertinent negative responses have been documented in the HPI. Past Medical History Past Medical History: No Reported History Additional Past Medical History / Comment(s): FX RT ANKLE History of Any Multi-Drug Resistant Organisms: None Reported Past Surgical History: Orthopedic Surgery, Tonsillectomy Additional Past Surgical History / Comment(s): left great toe surgery, right leg surgery Past Anesthesia/Blood Transfusion Reactions: No Reported Reaction Past Psychological History: No Psychological Hx Reported Smoking Status: Current every day smoker Past Alcohol Use History: Occasional Past Drug Use History: None Reported - Past Family History Mother Family Medical History: No Reported History <Donovan Martin - Last Filed: 11/22/23 11:34> General Exam Limitations: no limitations <Donovan Martin - Last Filed: 11/22/23 11:34> Limitations: no limitations General appearance: alert, in no apparent distress Head exam: Present: atraumatic, normocephalic, normal inspection Eye exam: Present: normal appearance, PERRL, EOMI. Absent: scleral icterus, conjunctival injection, periorbital swelling Respiratory exam: Present: normal lung sounds bilaterally. Absent: respiratory distress, wheezes, rales, rhonchi, stridor Cardiovascular Exam: Present: regular rate, normal rhythm, normal heart sounds. Absent: systolic murmur, diastolic murmur, rubs, gallop, clicks Neurological exam: Present: alert, oriented X3, CN II-XII intact Expanded Cerebellar function: Finger to Nose: Normal, Heel to Jacobo: Normal, Romberg: Normal Motor strength exam: RUE: 5, LUE: 5, RLE: 5, LLE: 5 Psychiatric exam: Present: normal affect, normal mood Skin exam: Present: warm, dry, intact, normal color. Absent: rash <Evelyne Snyder - Last Filed: 11/26/23 06:35> - General Exam Comments Initial Comments: Visual Physical Exam Vital signs reviewed General: Well-appearing, nontoxic, no acute distress. Head: Normocephalic, atraumatic Eyes: PERRLA, EOMI ENT: Airway patent Chest: Nonlabored breathing Skin: No visual rash, normal skin tone Neuro: Alert and oriented 3 Musculoskeletal: No gross abnormalities (Donovan Martin) Course Vital Signs 11/22/23 11/22/23 11:29 14:20 Temperature 98.1 F Pulse Rate 78 68 Respiratory 18 16 Rate Blood Pressure 152/104 149/94 O2 Sat by Pulse 99 100 Oximetry Medical Decision Making <Donovan Martin - Last Filed: 11/22/23 11:34> - Lab Data Result diagrams: 11/22/23 12:23 11/22/23 12:23 - Radiology Data Radiology results: report reviewed, image reviewed <Evelyne Snyder - Last Filed: 11/26/23 06:35> - Medical Decision Making I performed the quick note portion of this chart. Electronically signed by Donovan Martin PA-C (Donovan Martin) This is a 43 year old male who presents to the emergency department for elevated BP. Was pt. sent in by a medical professional or institution? @ -[facility] office Did you speak to anyone other than the patient for history? @ -No Did you review nursing and triage notes? @ -Yes, and I agree, it is accurate with regards to the patient's symptoms. Were old charts reviewed? @ -No Differential Diagnosis? @ -Differential Elevated BP: HTN, stress, heart disease, renal disease, this is not meant to be an all- inclusive list. EKG interpreted by me (3pts min.)? @ -EKG interpreted by me demonstrating the following: X-rays interpreted by me (1pt min.)? @ -Chest x-ray obtained, my interpretation identifies no localized consolidations or infiltrates. CT interpreted by me (1pt min.)? @ -Not obtained U/S interpreted by me (1pt. min.)? @ -Not obtained What testing was considered but not performed? (CT, X-rays, U/S, labs)? Why? @ -Consideration of a CT scan of the brain due to patient's headaches, however she declined due to lack of severity at this time. What meds were considered but not given? Why? @ -None Did you discuss the management of the patient with other professionals? @ -No Did you reconcile home meds? @ -No Was smoking cessation discussed for >3mins.? @ -No Was critical care preformed (if so, how long)? @ -No Were there social determinants of health that impacted care today? How? (Homelessness, low income, unemployed, alcoholism, drug addiction, transportation, low edu. Level, literacy, decrease access to med. care, skilled nursing, rehab)? @ -No Was there de-escalation of care discussed even if they declined? (Discuss DNR or withdrawal of care, Hospice)? @ -No What co-morbidities impacted this encounter? (DM, HTN, Smoking, COPD, CAD, Cancer, CVA, Hep., AIDS, mental health diagnosis, sleep apnea, morbid obesity)? @ -None Was patient admitted / discharged? @ -Discharge. Lab work unremarkable. Chest x-ray reveals no acute process. Patient's blood pressure was 152/104 on arrival. Discussed with the patient that given her increasing headaches, we can obtain a CT scan of the brain to evaluate for any other concerning process. Patient states that her headache is not severe at this time and she would like to avoid it for now, but will return if anything changes or worsens. Will start patient on low-dose amlodipine at 2.5 mg. A prescription was provided. She is advised to purchase a blood pressure cuff and keep a log of her blood pressures. Patient discharged home in stable condition. Undiagnosed new problem with uncertain prognosis? @ -None Drug Therapy requiring intensive monitoring for toxicity (Heparin, Nitro, Insulin, Cardizem)? @ -None Were any procedures done? @ -None Diagnosis/symptom? @ -Elevated BP Acute, or Chronic, or Acute on Chronic? @ -Acute Uncomplicated (without systemic symptoms) or Complicated (systemic symptoms)? @ -Uncomplicated Side effects of treatment? @ -None Exacerbation, Progression, or Severe Exacerbation] @ -Not applicable Poses a threat to life or bodily function? @ -This will depend on how she progresses. Return precautions reviewed in depth, the patient is instructed to return to the emergency department with any new, worsening, or concerning symptoms. Patient ve rbalized understanding. This case was discussed in detail with the attending ED physician, Dr. Lee. Presentation, findings, and treatment plan discussed in detail as well. (Evelyne Snyder) - Lab Data Lab Results 11/22/23 11/22/23 Range/Units 12:23 12:23 WBC 5.4 (3.8-10.6) k/uL RBC 4.39 (3.80-5.40) m/uL Hgb 13.5 (11.4-16.0) gm/dL Hct 41.3 (34.0-46.0) % MCV 94.2 (80.0-100.0) fL MCH 30.8 (25.0-35.0) pg MCHC 32.7 (31.0-37.0) g/dL RDW 12.4 (11.5-15.5) % Plt Count 304 (150-450) k/uL MPV 7.9 Sodium 137 (137-145) mmol/L Potassium 4.2 (3.5-5.1) mmol/L Chloride 107 (98-107) mmol/L Carbon Dioxide 25 (22-30) mmol/L Anion Gap 5 mmol/L BUN 17 (7-17) mg/dL Creatinine 0.59 (0.52-1.04) mg/dL Est GFR (CKD-EPI)AfAm >90 (>60 ml/min/1.73 sqM) Est GFR (CKD-EPI)NonAf >90 (>60 ml/min/1.73 sqM) Glucose 88 (74-99) mg/dL Calcium 9.4 (8.4-10.2) mg/dL Total Bilirubin 0.7 (0.2-1.3) mg/dL AST 25 (14-36) U/L ALT 22 (4-34) U/L Alkaline Phosphatase 61 (38-126) U/L Total Protein 6.8 (6.3-8.2) g/dL Albumin 4.3 (3.5-5.0) g/dL Disposition <Donovan Martin - Last Filed: 11/22/23 11:34> Is patient prescribed a controlled substance at d/c from ED?: No Time of Disposition: 14:06 <Evelyne Snyder - Last Filed: 11/26/23 06:35> Clinical Impression: Hypertension Disposition: HOME SELF-CARE Instructions (If sedation given, give patient instructions): Hypertension (ED) Additional Instructions: Return to the emergency department with any new, worsening, or concerning symptoms. Start taking the blood pressure medication daily. Try to purchase a blood pressure cuff [id number] and check your blood pressure several times a day and keep a log of this. Review the list of primary care providers attached and try to become established for ongoing medical care and monitoring of your blood pressure. Prescriptions: amLODIPine [Norvasc] 2.5 mg PO DAILY #30 tablet Referrals: None,Stated [Primary Care Provider] - 1-2 days Forms: Area [facility]
--- NOTE | 2023-11-22 12:17 | XR ---
EXAMINATION TYPE: XR chest 2V DATE OF EXAM: 11/22/2023 COMPARISON: 05/27/2021 INDICATION: Hypertension TECHNIQUE: Frontal and lateral views of the chest are obtained. FINDINGS: The heart size is normal. The pulmonary vasculature is normal. The lungs are clear. IMPRESSION: 1. No acute pulmonary process.
[2023-11-22 12:44] LABS: HCT 41.3 % (34.0-46.0); HGB 13.5 gm/dL (11.4-16.0); MCH 30.8 pg (25.0-35.0); MCHC 32.7 g/dL (31.0-37.0); MCV 94.2 fL (80.0-100.0); Mean Platelet Volume 7.9; Platelet Count 304 k/uL (150-450); RBC 4.39 m/uL (3.80-5.40); RDW 12.4 % (11.5-15.5); WBC 5.4 k/uL (3.8-10.6)
[2023-11-22 13:06] LABS: ALT 22 U/L (4-34); AST 25 U/L (14-36); African American GFR (CKD) >90 (>60 ml/min/1.73 sqM); Albumin 4.3 g/dL (3.5-5.0); Alkaline Phosphatase 61 U/L (38-126); Anion Gap 5 mmol/L; Blood Urea Nitrogen 17 mg/dL (7-17); Calcium 9.4 mg/dL (8.4-10.2); Carbon Dioxide 25 mmol/L (22-30); Chloride 107 mmol/L (98-107); Glucose 88 mg/dL (74-99); Non-African American GFR(CKD) >90 (>60 ml/min/1.73 sqM); Potassium 4.2 mmol/L (3.5-5.1); Sodium 137 mmol/L (137-145); Total Bilirubin 0.7 mg/dL (0.2-1.3); Total Protein 6.8 g/dL (6.3-8.2)
[2023-11-22 14:34] VITALS: BP 149/94; PULSE 68; RESP 16
== END 2023-11-22 14:20 | disposition home or self-care (01) ==
LOC: EC 11:21
DX: I10 Essential (primary) hypertension (principal); F17.200 Nicotine dependence, unspecified, uncomplicated
CPT/HCPCS: 36415; 71046; 80053; 85027; 93005; 99283